=== PATIENT | female | born 1975 | race Two or more races ===

== ENCOUNTER 2017-07-13 23:29 | Emergency (ER) | payer SELFPAY ==
[~2017-07-13] VITALS: Ht 154.9 cm; Wt 63.5 kg
[2017-07-13 23:30] VITALS: BP 136/80
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
[2017-07-14] MEDS ORDERED: IBUPROFEN600 MG ORAL (00:19)
--- NOTE | 2017-07-14 08:47 | Diagnostic Imaging Report ---
Indications: Trauma Technique: Two views of the left forearm Comparison: None Findings: Small osseous density projects adjacent to the medial humeral condyle, appears corticated. No definite acute forearm fracture demonstrated. No dislocation. No radiopaque foreign body. Impression: Small osseous density of the elbow, as described, could represent an acute indeterminate fracture, correlation with clinical findings recommended. No definite forearm fracture demonstrated
== END 2017-07-14 00:30 | disposition home or self-care (01) ==
LOC: EDBD 23:29 → EMR 23:35
DX: S50.12XA Contusion of left forearm, initial encounter (principal); Y04.0XXA Assault by unarmed brawl or fight, initial encounter; Y92.9 Unspecified place or not applicable
CPT/HCPCS: 99283